=== PATIENT | female | born 1950 | race Caucasian/White ===

== ENCOUNTER 2024-10-15 15:16 | Emergency (ER) | payer OTHER ==
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
--- NOTE | 2024-10-15 16:43 | RAD REPORT ---
EXAM:Extremity Venous Uni Ltd HISTORY: Left leg pain TECHNIQUE: Sonographic evaluation left lower extremity performed.Grayscale, color and spectral analys is performed on all vessels COMPARISON: None. FINDINGS: Left common femoral, superficial femoral, greater saphenous, popliteal and posterior tibial veins are compressible and demonstrate augmentation. Doppler demonstrates good flow. IMPRESSION: No evidence of deep venous thrombosis involving the left lower extremity.
--- NOTE | 2024-10-15 16:47 | RAD REPORT ---
EXAM:Lower Extremity Artery Uni Ltd HISTORY: Left eg pain TECHNIQUE: Sonographic evaluation left lower extremity arteries performed.Grayscale, color and spectr al analysis performed on all vessels COMPARISON: None. FINDINGS: Left common femoral, professional femoral, popliteal and dorsalis pedis arterial waveforms triphasic Left posterior tibial arterial waveform monophasic No high-grade stenosis/occlusion IMPRESSION: Mild distal left lower extremity arterial disease
[2024-10-15 18:13] LABS: Absolute Basophils 0.1 K/uL (0-0.5); Absolute Eosinophils 0.3 K/uL (0-0.5); Absolute Lymphocytes (CBC) 1.3 K/uL (0.7-4.9); Absolute Monocytes 0.8 K/uL (0.1-1.3); Absolute Neutrophil 6.3 K/uL (1.8-8.0); Basophils % 0.9 % (0-1.3); Eosinophils % 3.8 % (0-4.4); Hematocrit 36.6 % (36.0-45.0); Hemoglobin 12.2 g/dL (12.0-15.0); Lymphocytes % 15.1 % (15.3-44.8); MCH 29.4 pg (27.0-35.0); MCHC 33.4 g/dL (32.0-36.0); MPV 9.9 fL (7.6-11.3); Monocytes % 8.9 % (3.3-12.3); Neutrophils % 71.3 % (41.7-73.7); Platelets 228 thou/uL (152-406); RBC Red Blood Cell Count 4.15 M/uL (3.86-4.86); Red Cell Distribution Width 15.3 % (12.1-15.2)
[2024-10-15 18:15] LABS: PT Prothrombin Time 11.4 SECONDS (9.4-12.5); Protime INR 1.09
[2024-10-15 18:27] LABS: Albumin 3.3 g/dL (3.4-5.0); Albumin/Globulin Ratio 0.9 (1.1-1.8); Anion Gap 4.6 mEq/L (5.0-15.0); Bilirubin Total 0.4 mg/dL (0.2-1.0); Globulin 3.6 g/dL (2.3-3.5); Potassium 3.6 mEq/L (3.5-5.1); Protein, Total 6.9 g/dL (6.4-8.2)
[2024-10-15] MEDS ORDERED: CEFTRIAXONE 1000 MG/VIAL ONE (18:52)
[2024-10-15] MEDS ORDERED: NA CHLORIDE 0.9% 50 ML ONE (18:53)
[2024-10-15] MEDS ORDERED: DOXYCYCLINE 100 MG CAP PO ONE (18:53)
--- NOTE | 2024-10-15 19:02 | ER ---
Nurse's Notes [facility] Name: Abbie Boone Age: 74 yrs Sex: Female : 1950 Arrival Date: 10/15/2024 Time: 15:16 Bed 8 Private MD: Diagnosis: Cellulitis of left lower limb-lower leg Presentation: 10/15 15:45 Chief complaint: Patient states: redness and swelling to left lower leg onset 6 weeks cm10 ago. pt reports using OTC ABX ointment with no relief. Pt states that the redness and swelling is getting worse and now has drainage from the area. No fevers. Coronavirus screen: Client denies travel out of the [place] in the last 14 days. Ebola Screen: Patient denies travel to an Ebola-affected area in the 21 days before illness onset. Initial Sepsis Screen: Does the patient meet any 2 criteria? No. Patient's initial sepsis screen is negative. Does the patient have a suspected source of infection? No. Patient's initial sepsis screen is negative. Risk Assessment: Do you want to hurt yourself or someone else? Patient reports no desire to harm self or others. Onset of symptoms was October 15, 2024. 15:45 Method Of Arrival: Ambulatory cm10 15:45 Acuity: ISHAN 3 cm10 Triage Assessment: 15:48 General: Appears in no apparent distress. comfortable, Behavior is calm, cooperative. cm10 Neuro: No deficits noted. Level of Consciousness is awake, alert, obeys commands, Oriented to person, place, time, situation, Appropriate for age. Respiratory: No deficits noted. Airway is patent Respiratory effort is even, unlabored, Respiratory pattern is regular, symmetrical. Historical: - Allergies: 15:47 PENICILLINS; cm10 15:47 Sulfa (Sulfonamide Antibiotics); cm10 - Home Meds: 15:47 None [Active]; cm10 - PMHx: 15:47 None; cm10 - PSHx: 15:47 Ligation of fallopian tube; Right knee replacement; cm10 - Immunization history:: Adult Immunizations up to date. - Infectious Disease History:: Denies. - Social history:: Smoking status: Patient denies any tobacco usage or history of. Screenin:55 [facility] ED Fall Risk Assessment (Adult) History of falling in the last 3 months, db including since admission No falls in past 3 months (0 pts) Confusion or Disorientation No (0 pts) Intoxicated or Sedated No (0 pts) Impaired Gait No (0 pts) Mobility Assist Device Used No (0 pt) Altered Elimination No (0 pt) Score/Fall Risk Level 0 - 2 = Low Risk Oriented to surroundings, Maintained a safe environment. Abuse screen: Denies threats or abuse. Denies injuries from another. Nutritional screening: No deficits noted. Tuberculosis screening: No symptoms or risk factors identified. Assessment: 16:46 Reassessment: Patient appears in no apparent distress at this time. Patient and/or db family updated on plan of care and expected duration. Pain level reassessed. Patient is alert, oriented x 3, equal unlabored respirations, skin warm/dry/pink. 17:55 Reassessment: Patient appears in no apparent distress at this time. Patient and/or db family updated on plan of care and expected duration. Pain level reassessed. Patient is alert, oriented x 3, equal unlabored respirations, skin warm/dry/pink. General: Appears in no apparent distress. comfortable, Behavior is calm, cooperative. Neuro: Level of Consciousness is awake, alert, obeys commands, Oriented to person, place, time, situation. Respiratory: Airway is patent Respiratory effort is even, unlabored, Respiratory pattern is regular, symmetrical. Derm: Wound noted. 18:45 Reassessment: Patient appears in no apparent distress at this time. Patient and/or db family updated on plan of care and expected duration. Pain level reassessed. Patient is alert, oriented x 3, equal unlabored respirations, skin warm/dry/pink. 19:28 Reassessment: Took over care of pt ATT. Pt alert and oriented x4, no any distress ay noted. VTT, pt stable. 19:29 Cardiovascular: Capillary refill < 3 seconds. Respiratory: Airway is patent Respiratory ay effort is even, unlabored, Respiratory pattern is regular, symmetrical. Vital Signs: 15:45 BP 170 / 76; Pulse 71; Resp 17; Temp 98.3(O); Pulse Ox 100% ; Weight 99.79 kg; Height 5 cm10 ft. 7 in. ; Pain 0/10; 17:47 BP 134 / 78; Pulse 66; Resp 16; Pulse Ox 100% on R/A; db 18:00 BP 142 / 61; Pulse 65; Resp 16; Pulse Ox 100% ; db 18:30 BP 123 / 62; Pulse 66; Resp 16; Pulse Ox 99% on R/A; db 19:26 BP 149 / 77; Pulse 76; Resp 17; Pulse Ox 100% on R/A; ay 15:45 Body Mass Index 34.46 (99.79 kg, 170.18 cm) cm10 15:45 Pain Scale: Adult cm10 ED Course: 15:22 Patient arrived in ED. im 15:23 Gokul Muñiz PA is PHCP. cp 15:24 Gokul Pulido MD is Attending Physician. cp 15:47 Triage completed. cm10 15:48 Arm band placed on right wrist. Patient placed in an exam room, on a stretcher. cm10 16:37 US Extremity Venous Unilateral Ltd In Process Unspecified. EDMS 16:38 Lower Extremity Artery Uni Ltd US In Process Unspecified. EDMS 16:45 Bertha Spear, RN is Primary Nurse. db 16:46 Patient moved back from ultrasound. db 17:55 Patient has correct armband on for positive identification. Side rails up X 1. Provided db Education on: LABS. Pulse ox on. NIBP on. Warm blanket given. Pillow given. 17:55 Initial lab(s) drawn, by me, by EMS personnel. Inserted saline lock: 20 gauge in right db antecubital area, using aseptic technique. Blood collected. Flushed with 10 mL NS. 19:26 Muna Delatorre, RN is Primary Nurse. ay 19:29 IV discontinued, intact, bleeding controlled, No redness/swelling at site. Pressure ay dressing applied. Administered Medications: 19:01 Drug: Rocephin IV 1 grams IV at calculated rate once; Given slow IV push per pharmacy db instructions Route: IV; Rate: calculated rate; Site: right antecubital; 19:07 Drug: Doxycycline PO 200 mg PO once Route: PO; db Medication: 17:55 VIS not applicable for this client. db Outcome: 19:01 Discharge ordered by . cp 19:29 Discharged to home ambulatory, ay 19:29 Condition: stable 19:29 Discharge instructions given to patient, Instructed on discharge instructions, follow up and referral plans. medication usage, Demonstrated understanding of instructions, follow-up care, medications, Prescriptions given X 2, 19:33 Patient left the ED. ay Signatures: Dispatcher [employer] EDMS Gokul Muñiz PA PA cp Benton, Danielle, RN RN db Fabi Taylor Clarissa, RN RN cm10 Muna Delatorre RN RN ay Corrections: (The following items were deleted from the chart) 15:48 15:47 Allergies: No Known Allergies; cm10 cm10
--- NOTE | 2024-10-15 19:02 | EDPHYS ---
Physician Documentation [facility] Name: Abbie Boone Age: 74 yrs Sex: Female : 1950 Arrival Date: 10/15/2024 Time: 15:16 Bed 8 Private MD: JOHNNY Physician Gokul Pulido HPI: 10/15 15:55 This 74 yrs old Female presents to ER via Ambulatory with complaints of Leg Pain - cp left, Leg Swelling - Left. 15:55 The patient presents with swelling, erythema. cp 15:55 The complaints affect the lateral aspect of left calf. Context: resulted from an cp unknown cause, the patient can fully bear weight, the patient is able to ambulate, without difficulty, Problem is a result from a previous injury: No. Onset: The symptoms/episode began/occurred 6 week(s) ago. Associated signs and symptoms: Pertinent positives: calf tenderness, warmth, Pertinent negatives fever, numbness. Treatment prior to arrival includes: no previous treatment. Historical: - Allergies: 15:47 PENICILLINS; cm10 15:47 Sulfa (Sulfonamide Antibiotics); cm10 - Home Meds: 15:47 None [Active]; cm10 - PMHx: 15:47 None; cm10 - PSHx: 15:47 Ligation of fallopian tube; Right knee replacement; cm10 - Immunization history:: Adult Immunizations up to date. - Infectious Disease History:: Denies. - Social history:: Smoking status: Patient denies any tobacco usage or history of. ROS: 16:00 Constitutional: Negative for body aches, chills, fever, poor PO intake, cp 16:00 Eyes: Negative for injury, pain, redness, and discharge, cp 16:00 Cardiovascular: Negative for chest pain, palpitations, 16:00 Respiratory: Negative for cough, shortness of breath, wheezing, 16:00 Abdomen/GI: Negative for abdominal pain, 16:00 Skin: Positive for erythema, swelling, of the lateral aspect of left calf, 16:00 Neuro: Negative for altered mental status, headache, weakness, 16:00 All other systems are negative, Exam: 16:05 Constitutional: The patient appears in no acute distress, alert, awake, cp non-diaphoretic, non-toxic, well developed, well nourished, overweight 16:05 Head/Face: Normocephalic, atraumatic. cp 16:05 Eyes: Periorbital structures: appear normal, Conjunctiva: normal, no exudate, no injection, Lids and lashes: appear normal, bilaterally, 16:05 ENT: External ear(s): are unremarkable, Nose: is normal, Mouth: Lips: moist, Oral mucosa: moist, Posterior pharynx: Airway: no evidence of obstruction, patent, 16:05 Chest/axilla: Inspection: normal, 16:05 Cardiovascular: Rate: normal, Rhythm: regular, Edema: is not appreciated, JVD: is not appreciated, 16:05 Respiratory: the patient does not display signs of respiratory distress, Respirations: normal, no use of accessory muscles, no retractions, labored breathing, is not present, Breath sounds: are clear throughout, no decreased breath sounds, no stridor, no wheezing, 16:05 Abdomen/GI: Exam negative for discomfort, distension, guarding, Inspection: abdomen appears normal, 16:05 Back: pain, is absent, ROM is normal, 16:05 Musculoskeletal/extremity: Extremities: noted in the left lower leg: several area of superficial wounds with mild honey colored exudate/crusting, mild surrounding erythema and mild swelling, Perfusion: the extremity is warm, the left leg Sensation intact. 16:05 Neuro: Orientation: to person, place \T\ time. Mentation: is normal, Gait: is steady, Vital Signs: 15:45 BP 170 / 76; Pulse 71; Resp 17; Temp 98.3(O); Pulse Ox 100% ; Weight 99.79 kg; Height 5 cm10 ft. 7 in. ; Pain 0/10; 17:47 BP 134 / 78; Pulse 66; Resp 16; Pulse Ox 100% on R/A; db 18:00 BP 142 / 61; Pulse 65; Resp 16; Pulse Ox 100% ; db 18:30 BP 123 / 62; Pulse 66; Resp 16; Pulse Ox 99% on R/A; db 19:26 BP 149 / 77; Pulse 76; Resp 17; Pulse Ox 100% on R/A; ay 15:45 Body Mass Index 34.46 (99.79 kg, 170.18 cm) cm10 15:45 Pain Scale: Adult cm10 MDM: 15:49 Medical Screening Exam initiated abby 16:45 Differential diagnosis: abscess, dvt, cellulitis, sepsis, arterial blockage. 19:00 Data reviewed: vital signs, nurses notes, lab test result(s), radiologic studies, cp ultrasound. 19:01 I considered the following discharge prescriptions or medication management in the cp emergency department Medications were administered in the Emergency Department. See MAR. 19:01 Counseling: I had a detailed discussion with the patient and/or guardian regarding the cp historical points, exam findings, and any diagnostic results supporting the discharge/admit diagnosis, lab results, radiology results, to return to the emergency department if symptoms worsen or persist or if there are any questions or concerns that arise at home. Response to treatment: the patient's symptoms have mildly improved after treatment, and as a result, I will discharge patient. 10/15 16:03 Order name: CBC with Diff; Complete Time: 18:47 cp 10/15 16:03 Order name: CMP; Complete Time: 18:47 cp 10/15 16:03 Order name: PT-INR; Complete Time: 18:47 cp 10/15 16:04 Order name: Lactate w/ 2H reflex if indic.; Complete Time: 18:47 cp 10/15 15:44 Order name: US Extremity Venous Unilateral Ltd; Complete Time: 16:49 cp 10/15 16:50 Interpretation: Report reviewed. 10/15 15:44 Order name: Lower Extremity Artery Uni Ltd ; Complete Time: 16:49 cp 10/15 16:50 Interpretation: Report reviewed. 10/15 16:03 Order name: IV; Complete Time: 18:42 cp 10/15 18:50 Order name: Wound dressing cp Administered Medications: 19:01 Drug: Rocephin IV 1 grams IV at calculated rate once; Given slow IV push per pharmacy db instructions Route: IV; Rate: calculated rate; Site: right antecubital; 19:07 Drug: Doxycycline PO 200 mg PO once Route: PO; db Disposition Summary: 10/15/24 19:01 Discharge Ordered Notes: Location: Home cp Problem: new cp Symptoms: have improved cp Condition: Stable cp Diagnosis - Cellulitis of left lower limb - lower leg cp Followup: cp - With: Private Physician - When: 2 - 3 days - Reason: Recheck today's complaints Discharge Instructions: - Discharge Summary Sheet cp - Cellulitis, Adult cp Forms: - Medication Reconciliation Form cp - Antibiotic Education cp - Prescription Opioid Use cp - Patient Portal Instructions cp - Leadership Thank You Letter cp Prescriptions: - mupirocin 2 % Topical ointment - apply 1 application TOPICAL route 2-3 times daily for 8-10 days; 45 gram tube; cp Refills: 0, Product Selection Permitted - Doxycycline Hyclate 100 mg Oral Tablet - take 1 tablet ORAL route every 12 hours; 20 tablet; Refills: 0, Product cp Selection Permitted Addendum: 10/17/2024 09:35 Co-signature as Attending Physician, Gokul Pulido MD I agree with the assessment and c morfin plan of care. Signatures: Dispatcher [employer] [facility] Gokul Pulido MD MD cha Page, Corey, PA PA cp Bertha Spear, RN RN db Hanna Erwin RN RN cm10 Corrections: (The following items were deleted from the chart) 10/15 15:44 15:44 Lower Extremity Artery Uni Ltd+US.RAD.BRZ ordered. [facility] 15:48 15:47 Allergies: No Known Allergies; cm10 cm10
[2024-10-18 01:39] VITALS: BP 149/77; TEMP 98.3; O2SAT 100
== END 2024-10-15 19:33 | disposition home or self-care (01) ==
LOC: ER 15:16
DX: L03.116 Cellulitis of left lower limb (principal)
CPT/HCPCS: 85025; 36415; 85610; 83605; 80053; 93926; 93971; 96374; 99285; J0696